=== PATIENT | female | born 1985 | race Caucasian/White ===

== ENCOUNTER 2018-12-03 15:44 | Emergency (ER) | payer MEDICAID ==
[~2018-12-03] VITALS: Ht 165.1 cm; Wt 80.0 kg
--- NOTE | 2018-12-03 15:49 | NUR ---
33 Y/O FEMALE BIB AMBULANCE WITH C/O INSOMNIA. "I HAVEN'T BEEN ABLE TO SLEEP. I USE METH SOMETIMES. I DON'T WANT TO HURT MYSELF." MOTHER BEDSIDE. PER MOM "I THINK SHE HAS BEEN MORE DEPRESSED. I THINK PEOPLE FROM [place] WANT TO HURT HER." PER REPORT PT C/O OF NO SLEEP FOR 4 DAYS. PT TOOK 6 - 400 MG OF SEROQUEL. PT ADMITS TO DOING METH 3 DAYS AGO. MOTHER BEDSIDE. PT PLACED ON CONT PULSE OX, NIBP. NO C/O N/V/D, TRAUMA, SYNCOPE, CP, SOB. PT DENIES SI
--- NOTE | 2018-12-03 16:09 | NUR ---
PIV ESTABLISHED FIELD ENUMERATOR BY EMS. 250 mL NS ADMINISTERED FIELD ENUMERATOR. FSBS FROM EMS WAS 120
[2018-12-03 16:34] LABS: BASOPHILS # (AUTO) 0.01 x10^3/uL (0-0.1); BASOPHILS % (AUTO) 0 % (0-1); EOSINOPHILS # (AUTO) 0.07 x10^3/uL (0-0.4); EOSINOPHILS % (AUTO) 2 % (1-7); LYMPHOCYTES % (AUTO) 25 % (22-44); MD NO; MEAN CORPUSCULAR HGB CONC 33.4 g/dL (32.4-35.8); MEAN CORPUSCULAR VOLUME 107.7 fL (80-100); MEAN PLATELET VOLUME 7.1 fL (7.4-10.4); MONOCYTES # (AUTO) 0.31 x10^3/uL (0.2-0.8); MONOCYTES % (AUTO) 7 % (2-9); NEUTROPHILS # (AUTO) 2.98 x10^3/uL (1.8-6.8); NEUTROPHILS % (AUTO) 67 % (42-75); PLATELET COUNT 270 x10^3/uL (130-400); RED BLOOD COUNT 3.55 x10^6/uL (3.82-5.3); RED CELL DISTRIBUTION WIDTH 14.9 % (9.6-15.2)
[2018-12-03 16:45] LABS: ALANINE AMINOTRANSFERASE 38 U/L (12-78); ALBUMIN 3.5 g/dL (3.4-5.0); ANION GAP 7 mmol/L (5-15); CALCIUM 8.5 mg/dL (8.5-10.1); CHLORIDE 111 mmol/L (98-107); CREATININE 0.75 mg/dL (0.55-1.02); SALICYLATE LEVEL 2.2 mg/dL (2.8-20.0)
[2018-12-03 16:47] LABS: ALKALINE PHOSPHATASE 81 U/L (45-117); BILIRUBIN,TOTAL 0.6 mg/dL (0.2-1.0); TOTAL PROTEIN 6.3 g/dL (6.4-8.2)
[2018-12-03 16:48] LABS: ACETAMINOPHEN < 2 mcg/mL (10-30)
--- NOTE | 2018-12-03 16:48 | NUR ---
PT INTERMITTENTLY SLEEPING ON GURNEY. MOTHER BEDSIDE. NO ACUTE DISTRESS NOTED. NO NEEDS REQUESTED AT THIS TIME.
--- NOTE | 2018-12-03 17:20 | NUR ---
PT AMBULATORY WITH STEADY GAIT TO BATHROOM. PT STATES "OH, I FORGOT TO PEE IN THE CUP." PT EDUCATED REGARDING THE NEED FOR UA SAMPLE. PT VERBALIZED UNDERSTANDING. NO ACUTE DISTRESS NOTED. PT REATTACHED TO ALL MONITORS.
--- NOTE | 2018-12-03 18:06 | NUR ---
PT AMBULATORY WITH STEADY GAIT TO BATHROOM. NO SAMPLE PROVIDED. EDPA AWARE. NO ACUTE DISTRESS NOTED.
--- NOTE | 2018-12-03 18:31 | NUR ---
BSC NEXT TO PATIENT TO TRY AND GET UA SAMPLE. TELE ROBOT INROOM. MOTHER BEDSIDE.
--- NOTE | 2018-12-03 18:52 | NUR ---
BEDSIDE REPORT TO CARYN GOLDMAN
--- NOTE | 2018-12-03 19:31 | NUR ---
PTS MOTHER KEEPS COMING TO NURSES STATION ASKING WHEN TELEPSYCH WILL CALL. UPDATE GIVEN TO MOTHER. MOTHER STARTED TO CRY SAYING "SHE NEEDS TO GO HOME SHE HAS PNEUMONIA." INTRODUCED SELF TO PT, STILL UNABLE TO GIVE URINE SAMPLE AT THIS TIME.
--- NOTE | 2018-12-03 20:12 | NUR ---
PT SLEEPING. MOTHER AT BEDSIDE. AWAITING TELEPSYCH.
--- NOTE | 2018-12-03 21:35 | NUR ---
UPDATE GIVEN TO TELEPSYCH PHYSICIAN. TELEROBOT IN PTS ROOM
--- NOTE | 2018-12-03 22:00 | NUR ---
TELEPSYCH PHYSICIAN SPOKE WITH KRYS BEJARANO TO DISCHARGE PT WITH RESOURCES.
--- NOTE | 2018-12-03 22:17 | NUR ---
KRYS ROMERO AT BEDSIDE EXPLAINING DISCHARGE PAPERWORK WITH RESOURCES FOR PHSYCHIATRIC HELP. VERBALIZEZS UNDERSTANDING.
[2018-12-03 22:18] VITALS: BP 120/71
== END 2018-12-03 22:21 | disposition home or self-care (01) ==
LOC: ED 16:41
DX: F32.9 Major depressive disorder, single episode, unspecified (principal); F15.10 Other stimulant abuse, uncomplicated; Z72.9 Problem related to lifestyle, unspecified; F17.210 Nicotine dependence, cigarettes, uncomplicated
CPT/HCPCS: 36415; 80053; 80307; 84703; 85025; 93005; 99284

== ENCOUNTER 2019-09-30 06:37 | Emergency (ER) | payer MEDICAID ==
[~2019-09-30] VITALS: Ht 172.7 cm; Wt 80.0 kg
[2019-09-30 06:41] VITALS: BP 135/94
--- NOTE | 2019-09-30 06:44 | NUR ---
Patient BIB [facility] c/o cat scratches. She has one on her ankle which she states is two weeks old. She has a new one on her left knee which she states is "digging a hole in my body." Patient has a hx of MRSA x2 years ago. Patient also lives with mother who is in quarantine per her MD for flu like symptoms. Patient denies resp symptoms. Patient is in NAD. Respirations even and unlabored.
[2019-09-30] MEDS ORDERED: DOXYCYCLINE 100MG TABLET ONE (07:22)
[2019-09-30] MEDS ORDERED: DOXYCYCLINE 100MG TABLET PO ONE (07:30)
== END 2019-09-30 07:42 | disposition home or self-care (01) ==
LOC: ED 07:00
DX: L03.116 Cellulitis of left lower limb (principal); M79.601 Pain in right arm; M79.602 Pain in left arm
CPT/HCPCS: 99283